=== PATIENT | female | born 1965 | race Caucasian/White ===

== ENCOUNTER → 2017-05-02 | Outpatient (CLI) | payer BC ==
[~2017-05-02] MED LIST: IBUP800T; [UNRECOGNIZED DRUG - OTHER]
--- NOTE | 2017-05-02 14:39 | REP ---
Hepatobiliary scan and gallbladder ejection fraction: History: Right upper quadrant pain. Technique: 6.6 mCi of technetium-99m mebrofenin was injected and sequential anterior images are acquired. 65 minutes after the mebrofenin injection, the patient consumed 8 ounces Ensure and an additional 60 minutes of imaging was acquired. Regions of interest are plotted around the gallbladder. Findings: The initial hepatocellular parenchymal uptake phase is normal and homogeneous. Intra- and extra-hepatic bile ducts and duodenum are labeled by the 10 -minute image. The gallbladder is first labeled on the 15 -minute image. There is normal washout from the liver parenchyma into the gallbladder and small intestine on subsequent images. The gallbladder ejection fraction is 39 %. Values greater than 35 % are considered normal with this technique. Impression: Normal hepatobiliary scan and normal gallbladder ejection fraction. Signed by Rudy Thao MD 05/02/2017 10:27 A
== END ==
LOC: M RAD 07:57
PROVIDERS: ATTEND Nurse Practitioner Family
DX: R10.9 Unspecified abdominal pain (principal)
CPT/HCPCS: 78227; A9537; J2805

== ENCOUNTER → 2017-05-09 | Outpatient (CLI) | payer BC ==
--- NOTE | 2017-05-09 11:30 | REPMRS ---
Patient History The patient states she has not had a clinical breast exam in over a year. Family history of lung cancer in paternal grandfather and breast cancer in maternal aunt at age 50 or over. [facility] at [facility] 2 years ago Digital Mammo Screening Bilat: May 09, 2017 - Exam #: [id number] Bilateral CC and MLO view(s) were taken. Technologist: Maggie Kennedy, Technologist Prior study comparison: January 08, 2015, digital bilateral screening mammo, performed at [facility]. FINDINGS: The breast tissue is heterogeneously dense. This may lower the sensitivity of mammography. There is a moderate amount of heterogeneously dense fibroglandular tissue which is fairly symmetric. There is no interval development of dominant mass, architectural distortion, or clustered microcalcification typical of malignancy. There has been no change in the appearance of the mammogram from the prior studies. ASSESSMENT: BI-RADS/ACR category 1 mammogram. Negative. Recommendation Routine screening mammogram of both breasts in 1 year (for women over age 40). This mammogram was interpreted with the aid of an FDA-approved computer-aided dectection system. Electronically Signed By: Óscar Thao MD 05/09/17 [id number]
== END ==
LOC: M RAD 10:08
PROVIDERS: ATTEND Nurse Practitioner Family
DX: Z12.31 Encounter for screening mammogram for malignant neoplasm of breast (principal); R92.8 Other abnormal and inconclusive findings on diagnostic imaging of breast

== ENCOUNTER → 2017-09-06 | Outpatient (CLI) | payer BC | LOC: M SLEEP 19:25 | DX: G47.30 Sleep apnea, unspecified (principal) | CPT/HCPCS: 95810 ==

== ENCOUNTER → 2021-01-18 | Outpatient (CLI) | payer BC ==
--- NOTE | 2021-01-18 17:17 | REP ---
INDICATION: SPRAIN OF INTERPHALANGEAL JOINT OF RIGHT GREAT TOE, INIT. COMPARISON: None. TECHNIQUE: Four views FINDINGS: There is no evidence of an acute fracture or destructive osseous lesion. The joint spaces are symmetric and well maintained. IMPRESSION: No acute abnormality <Electronically signed by [place] > 01/18/21 [id number]
== END ==
LOC: M RAD 16:42
PROVIDERS: ATTEND Physician Assistant
DX: S93.511A Sprain of interphalangeal joint of right great toe, initial encounter (principal)

== ENCOUNTER 2025-02-17 16:50 | Emergency (ER) | payer BC ==
[~2025-02-17] VITALS: Ht 172.7 cm; Wt 80.4 kg
[2025-02-17] MEDS: MORPHINE 2 MG/ML 1 ML VIAL IV ONE (19:34)
[2025-02-17] MEDS: LIDOCAINE 2% MDV 20 ML VIAL SC ONE (21:42)
[2025-02-17] MEDS: TETANUS/DIPHTH/ACEL. PERTUSSIS 0.5 ML SYR IM.IMMUN ONE (23:55)
[2025-02-18] MEDS ORDERED: HYDR-3713 PO (01:05)
[2025-02-18 01:45] VITALS: BP 112/66; TEMP 97.3; O2SAT 97
[2025-02-18] MEDS: NORCO 5/325MG TABLET (HOME DOSE PACK) PO ONE (01:55)
== END 2025-02-18 01:57 | disposition home or self-care (01) ==
LOC: EDBD 16:50 → M ED 16:50
DX: S61.511A Laceration without foreign body of right wrist, initial encounter (principal); Y92.9 Unspecified place or not applicable; Y93.9 Activity, unspecified; Y99.9 Unspecified external cause status; W26.8XXA Contact with other sharp object(s), not elsewhere classified, initial encounter; Z79.1 Long term (current) use of non-steroidal anti-inflammatories (NSAID); Z23 Encounter for immunization

== ENCOUNTER 2025-02-27 13:33 | Inpatient (IN) | payer BC ==
[~2025-02-27] VITALS: Ht 172.7 cm; Wt 80.4 kg
[~2025-02-27 13:33] MED LIST changes: +HYDR-3713 PO
[2025-02-27 19:00] VITALS: BP 127/66; TEMP 98.1; O2SAT 98
[2025-02-27 20:48] LABS: BASO # 0.1 10^3/uL (0.0-0.2); BASO % 1.0 % (0.0-1.0); EOS # 0.2 10^3/uL (0.0-0.5); EOS % 3.7 % (0.0-3.0); LYMPH # 2.1 10^3/uL (1.5-5.0); LYMPH % 34.9 % (24.0-44.0); MONO # 0.7 10^3/uL (0.0-0.8); MONO % 11.8 % (2.0-8.0); NEUTROPHILS # 2.9 10^3/uL (1.5-8.5); NEUTROPHILS % 48.4 % (36.0-66.0); PLATELET COUNT, AUTOMATED 251 10^3/uL (150-450)
[2025-02-27 20:53] VITALS: BP 106/59; TEMP 97.7; O2SAT 97
[2025-02-27] MEDS ORDERED: UNIS25TA3 PO (20:57)
[2025-02-27] MEDS ORDERED: HOME MED LIST COMPLETE! XX SCH (21:00)
[2025-02-27 21:02] LABS: INR 0.94
[2025-02-27 21:13] LABS: ALT/SGPT 13.0 U/L (7.0-40); AST/SGOT 13.0 U/L (<34); CALCIUM LEVEL 9.0 MG/DL (8.3-10.6); CARBON DIOXIDE LEVEL 26.0 MMOL/L (20-31); CHLORIDE LEVEL 108.0 MMOL/L (98-107); CREATININE FOR GFR 0.84 MG/DL (0.55-1.30); GLOMERULAR FILTRATION RATE 79.5 (>45); POTASSIUM SERUM 4.0 MMOL/L (3.5-5.1); SODIUM LEVEL 144.0 MMOL/L (136-145)
[2025-02-27] MEDS: ceFAZolin SOD 1 GM in DEXTROSE 5% (D5W) ADV/MINI-BAG 50 ML IV SCH (21:24)
[2025-02-27] MEDS: RAMELTEON 8 MG TAB PO ONE (21:24)
[2025-02-28] VITALS (8 sets, daily range): BP systolic 93–127; BP diastolic 51–70; TEMP 96.7–97.9; O2SAT 91–98
[2025-02-28] MEDS ORDERED: MORPHINE 4 MG/ML 1 ML VIAL IV PRN ×2 (09:35→16:45)
[2025-02-28] MEDS ORDERED: D5W/0.45% SODIUM CHLORIDE 1,000 ML IV SCH (09:35)
[2025-02-28] MEDS: NS (Normal Saline) 0.9% 1,000 ML IV ONE (09:35)
[2025-02-28] MEDS ORDERED: NALOXONE INJ 0.4 MG/1 ML VIAL IV PRN (09:35)
[2025-02-28] MEDS: VANCOMYCIN 1000MG/20ML VIAL As Ordered ONE (09:46)
[2025-02-28] MEDS: ZOSYN 3.375GM VIAL As Ordered ONE (09:47)
[2025-02-28 10:05] LABS: BASO # 0.1 10^3/uL (0.0-0.2); BASO % 1.1 % (0.0-1.0); EOS # 0.2 10^3/uL (0.0-0.5); EOS % 3.4 % (0.0-3.0); LYMPH # 1.8 10^3/uL (1.5-5.0); LYMPH % 32.0 % (24.0-44.0); MONO # 0.6 10^3/uL (0.0-0.8); MONO % 11.5 % (2.0-8.0); NEUTROPHILS # 2.9 10^3/uL (1.5-8.5); NEUTROPHILS % 51.6 % (36.0-66.0); PLATELET COUNT, AUTOMATED 246 10^3/uL (150-450)
[2025-02-28] MEDS ORDERED: ONDANSETRON 4MG 2ML VIAL As Ordered ONE (10:07)
[2025-02-28] MEDS ORDERED: dexAMETHasone 4 MG/ML 1 ML VIAL As Ordered ONE (10:07)
[2025-02-28] MEDS ORDERED: LIDOCAINE 2% 100 MG/5 ML SDV (FOR ANES.) As Ordered ONE (10:07)
[2025-02-28] MEDS ORDERED: MIDAZOLAM INJ 2 MG/2 ML VIAL As Ordered ONE (10:11)
[2025-02-28] MEDS ORDERED: HYDROMORPHONE HCL 0.5 MG/0.5 ML SYRINGE IV PRN (10:20)
[2025-02-28] MEDS ORDERED: ONDANSETRON 4MG 2ML VIAL IV PRN ×2 (10:20→13:15)
[2025-02-28] MEDS ORDERED: diphenhydrAMINE 50 MG/ML VIAL IV PRN ×2 (10:20→13:15)
[2025-02-28 10:30] LABS: CALCIUM LEVEL 8.8 MG/DL (8.3-10.6); CARBON DIOXIDE LEVEL 26 MMOL/L (20-31); CHLORIDE LEVEL 107 MMOL/L (98-107); CREATININE FOR GFR 0.78 MG/DL (0.55-1.30); GLOMERULAR FILTRATION RATE 86.9 (>45); POTASSIUM SERUM 4.4 MMOL/L (3.5-5.1); SODIUM LEVEL 143 MMOL/L (136-145)
[2025-02-28] MEDS ORDERED: dexmedeTOMIDine (4 MCG/ML) 200 MCG/50 ML BTL As Ordered ONE (11:01)
[2025-02-28] MEDS: ACETAMINOPHEN 500 MG TAB PO SCH (12:00)
[2025-02-28] MEDS ORDERED: HYDROmorphone HCL 2 MG/ML 1 ML VIAL As Ordered ONE (12:21)
[2025-02-28] MEDS ORDERED: KETOROLAC 30 MG/ML 1 ML VIAL As Ordered ONE (13:00)
[2025-02-28] MEDS: HYDROMORPHONE HCL 0.5 MG/0.5 ML SYRINGE IV PRN (13:28)
[2025-02-28] MEDS: MIDODRINE 5 MG TAB PO ONE ×2 (14:22→16:58)
[2025-02-28] MEDS: NS (Normal Saline) 0.9% 1,000 ML IV SCH (14:24)
[2025-02-28] MEDS ORDERED: ALBUTEROL 6.7 GM INHALER **FOR ANES. CART/OMNICELL ONLY As Ordered ONE (15:03)
[2025-02-28] MEDS ORDERED: LR 1,000 ML IV SCH (16:15)
[2025-02-28] MEDS ORDERED: MORPHINE SULFATE TAB IMM. REL. 15 MG PO PRN (16:20)
[2025-02-28 16:32] LABS: C REACTIVE PROTEIN QUANTITATIV < 0.50 MG/DL (<1.0)
[2025-02-28 16:53] LABS: ERYTHROCYTE SEDIMENTATION RATE 29 mm/hr (0-30)
[2025-02-28] MEDS: MORPHINE SULFATE TAB IMM. REL. 15 MG PO ONE (16:58)
[2025-02-28] MEDS: ACETAMINOPHEN *IV* 1,000 MG in IV 1 EA IV ONE (18:15)
[2025-02-28] MEDS: PIPERACILLIN/TAZOBACTAM SOD 4.5 GM in DEXTROSE 5% (D5W) ADV/MINI-BAG 50 ML IV ONE (18:41)
[2025-02-28] MEDS: ONDANSETRON 4MG 2ML VIAL IV PRN (20:27)
[2025-02-28] MEDS: KETOROLAC 30 MG/ML 1 ML VIAL IV ONE (20:30)
[2025-02-28] MEDS: LR 1,000 ML IV SCH (20:30)
[2025-03-01] VITALS (8 sets, daily range): BP systolic 88–102; BP diastolic 42–58; TEMP 97.8–98.4; O2SAT 96–100
[2025-03-01] MEDS: MIDODRINE 5 MG TAB PO ONE (04:48)
[2025-03-01 07:16] LABS: BASO # 0.0 10^3/uL (0.0-0.2); BASO % 0.4 % (0.0-1.0); EOS # 0.0 10^3/uL (0.0-0.5); EOS % 0.3 % (0.0-3.0); LYMPH # 2.0 10^3/uL (1.5-5.0); LYMPH % 17.6 % (24.0-44.0); MONO # 1.0 10^3/uL (0.0-0.8); MONO % 8.5 % (2.0-8.0); NEUTROPHILS # 8.3 10^3/uL (1.5-8.5); NEUTROPHILS % 72.9 % (36.0-66.0); PLATELET COUNT, AUTOMATED 242 10^3/uL (150-450)
[2025-03-01 07:43] LABS: CALCIUM LEVEL 8.0 MG/DL (8.3-10.6); CARBON DIOXIDE LEVEL 24.0 MMOL/L (20-31); CHLORIDE LEVEL 110.0 MMOL/L (98-107); CREATININE FOR GFR 0.82 MG/DL (0.55-1.30); GLOMERULAR FILTRATION RATE 81.8 (>45); POTASSIUM SERUM 4.1 MMOL/L (3.5-5.1); SODIUM LEVEL 144.0 MMOL/L (136-145)
[2025-03-01] MEDS ORDERED: MIDO10TA3 PO (09:11)
[2025-03-01] MEDS ORDERED: DIGE1CAP7 PO (09:11)
[2025-03-01] MEDS ORDERED: CEPH500C PO ×2 (09:11→10:01)
[2025-03-01] MEDS ORDERED: PERC5TAB12 PO (09:15)
[2025-03-01] MEDS ORDERED: LR 1,000 ML IV ONE (09:30)
[2025-03-01] MEDS ORDERED: MIDODRINE 5 MG TAB PO ONE (09:30)
[2025-03-01] MEDS: KETOROLAC 30 MG/ML 1 ML VIAL IV ONE (09:34)
== END 2025-03-01 11:45 | disposition home or self-care (01) | DRG 364 ==
LOC: M MS4PR 18:42 → OBSVTOIN 02-28 09:10
PROVIDERS: ADMIT Internal Medicine; ATTEND General Practice
PROC: 01Q60ZZ Repair Radial Nerve, Open Approach (ICD-10-PCS; 2025-02-28)
PROC: 0LQ50ZZ Repair Right Lower Arm and Wrist Tendon, Open Approach (ICD-10-PCS; principal; 2025-02-28 08:30)
DX: S61.519A Laceration without foreign body of unspecified wrist, initial encounter (principal); K58.0 Irritable bowel syndrome with diarrhea; G47.00 Insomnia, unspecified; W23.2XXA Caught, crushed, jammed or pinched between a moving and stationary object, initial encounter; Y92.009 Unspecified place in unspecified non-institutional (private) residence as the place of occurrence of the external cause; Z79.2 Long term (current) use of antibiotics; Z79.899 Other long term (current) drug therapy